=== PATIENT | female | born 1960 | race Caucasian/White ===

== ENCOUNTER → 2019-12-11 | Outpatient (CLI) | payer OTHER ==
[~2019-12-11] MED LIST: ADDE20CA3 PO; CYMB1CAP4 PO; LISI-538 PO; MACR100C43 PO; METF-877 PO; OMEP40CA97 PO; PROC1CRE TOP; SYNT75TA PO; WELLTAB40 PO
--- NOTE | 2019-12-21 15:14 | REPMRS ---
Patient History The patient states she had a clinical breast exam in August 2019.Patient is postmenopausal. Family history of pancreatic cancer in mother. Digital Woman Screen Mammo: December 11, 2019 - Exam #: [id number] Bilateral CC and MLO view(s) were taken. Technologist: Lucy Mckeon, Technologist Prior study comparison: February 20, 2019, bilateral digital woman screen mammo, performed at [facility]. 2017, digital mammo diagnostic bilateral, performed at [facility]. October 07, 2016, bilateral digital woman screen mammo, performed at [facility]. FINDINGS: There are scattered fibroglandular densities. There has been no change in the appearance of the mammogram from the prior studies. There is a mild amount of scattered fibroglandular density which is fairly symmetric. There is no interval development of dominant mass, architectural distortion, or grouped microcalcification suggestive of malignancy. 3-D tomosynthesis shows no additional findings. Assessment: BI-RADS/ACR category 1 mammogram. Negative Mammogram. Recommendation Routine screening mammogram of both breasts in 1 year (for women over age 40). This patient's Lifetime Breast Cancer Risk is estimated at 6.5 %. This mammogram was interpreted with the aid of an FDA-approved computer-aided dectection system. Electronically Signed By: Maxx Tilley MD 12/21/19 [id number]
== END ==
LOC: M WHC 15:48
PROVIDERS: ATTEND Nurse Practitioner Family
DX: Z12.31 Encounter for screening mammogram for malignant neoplasm of breast (principal); Z78.0 Asymptomatic menopausal state

== ENCOUNTER 2019-12-12 15:01 | Emergency (ER) | payer OTHER ==
[~2019-12-12] VITALS: Ht 167.6 cm; Wt 91.1 kg
[2019-12-12] MEDS ORDERED: OMEP40CA97 PO (15:14)
[2019-12-12] MEDS ORDERED: METF-877 PO (15:14)
[2019-12-12] MEDS ORDERED: ADDE20CA3 PO (15:14)
[2019-12-12] MEDS ORDERED: CYMB1CAP4 PO (15:14)
[2019-12-12] MEDS ORDERED: SYNT75TA PO (15:14)
[2019-12-12] MEDS ORDERED: WELLTAB40 PO (15:14)
[2019-12-12] MEDS ORDERED: LISI-538 PO (15:14)
[2019-12-12 16:23] LABS: HEMATOCRIT 42.1 % (36.0-47.0); MEAN CORPUSCULAR HEMOGLOBIN 30.2 pg (27.0-33.0); MEAN CORPUSCULAR HGB CONC 33.3 g/dl (32.0-36.5); MEAN CORPUSCULAR VOLUME 90.7 fl (80.0-96.0); PLATELET COUNT, AUTOMATED 213 10^3/uL (150-450); RED BLOOD COUNT 4.64 10^6/uL (4.00-5.40); WHITE BLOOD COUNT 8.1 10^3/uL (4.0-10.0)
[2019-12-12 16:51] LABS: BLOOD UREA NITROGEN 14 MG/DL (7-18); CALCIUM LEVEL 9.4 MG/DL (8.5-10.1); CARBON DIOXIDE LEVEL 26 MEQ/L (21-32); CHLORIDE LEVEL 106 MEQ/L (98-107); GLOMERULAR FILTRATION RATE > 60.0 (>51); GLUCOSE, FASTING 121 MG/DL (70-100); POTASSIUM SERUM 3.9 MEQ/L (3.5-5.1); SODIUM LEVEL 140 MEQ/L (136-145)
--- NOTE | 2019-12-12 20:49 | REPVR ---
PROCEDURE INFORMATION: Exam: CT Abdomen And Pelvis Without Contrast Exam date and time: 12/12/2019 8:03 PM Age: 59 years old Clinical indication: Abdominal pain; Generalized; Additional info: Hematuria/dysuria TECHNIQUE: Imaging protocol: Computed tomography of the abdomen and pelvis without contrast. Radiation optimization: All CT scans at this facility use at least one of these dose optimization techniques: automated exposure control; mA and/or kV adjustment per patient size (includes targeted exams where dose is matched to clinical indication); or iterative reconstruction. COMPARISON: No relevant prior studies available. FINDINGS: Liver: 1.3 cm hypoattenuating focus in the lateral segment of the left lobe of the liver may represent a benign lesion such as a cyst or hemangioma although not fully characterized on this unenhanced scan. Correlation with ultrasound suggested. Examination of the liver demonstrates a lobular surface contour, and enlargement of the left lobe, findings consistent with cirrhosis in the appropriate clinical setting. Gallbladder and bile ducts: The gallbladder is incompletely distended. This is most likely related to incomplete fasting. Clinical correlation to exclude gallbladder pathology suggested. Pancreas: Normal. No ductal dilation. Spleen: Normal. No splenomegaly. Adrenals: Normal. No mass. Kidneys and ureters: Normal. No hydronephrosis. Stomach and bowel: Mild diverticulosis is present in the distal left colon. No diverticulitis. Appendix: No evidence of appendicitis. Intraperitoneal space: Unremarkable. No free air. No significant fluid collection. Vasculature: The aorta demonstrates mild atherosclerotic calcification. Recanalized paraumbilical veins. Lymph nodes: Unremarkable. No enlarged lymph nodes. Bladder: There is thickening of the bladder wall with perivesicular inflammatory changes consistent with acute cystitis. Reproductive: Unremarkable as visualized. Bones/joints: Moderate to severe central spinal stenosis L2-L3, severe central spinal stenosis L3-L4 and L4-L5. Bilateral facet joint arthropathy L5-S1. Soft tissues: Unremarkable. IMPRESSION: 1. 1.3 cm hypoattenuating focus in the lateral segment of the left lobe of the liver may represent a benign lesion such as a cyst or hemangioma although not fully characterized on this unenhanced scan. Correlation with ultrasound suggested. 2. Examination of the liver demonstrates a lobular surface contour, and enlargement of the left lobe, findings consistent with cirrhosis in the appropriate clinical setting. 3. The gallbladder is incompletely distended. This is most likely related to incomplete fasting. Clinical correlation to exclude gallbladder pathology suggested. 4. There is thickening of the bladder wall with perivesicular inflammatory changes consistent with acute cystitis. 5. Mild diverticulosis is present in the distal left colon. No diverticulitis. Electronically signed by: Jake Lui On 12/12/2019 20:48:55 PM
[2019-12-12] MEDS ORDERED: MACR100C43 PO (21:00)
[2019-12-12] MEDS ORDERED: PROC1CRE TOP (21:00)
[2019-12-12 21:13] VITALS: BP 138/86
--- NOTE | 2019-12-13 18:56 | ED PDOC ---
Post-Departure Follow-Up dr rosado faxed formal report of ct abd/p for fu Heri Coleman MD Dec 13, 2019 18:56
== END 2019-12-12 21:15 | disposition home or self-care (01) ==
LOC: M ED 15:01
DX: N30.91 Cystitis, unspecified with hematuria (principal); K64.9 Unspecified hemorrhoids; E11.9 Type 2 diabetes mellitus without complications; I10 Essential (primary) hypertension; F43.10 Post-traumatic stress disorder, unspecified; K21.9 Gastro-esophageal reflux disease without esophagitis; Z79.899 Other long term (current) drug therapy; Z79.890 Hormone replacement therapy; Z88.2 Allergy status to sulfonamides; Z87.891 Personal history of nicotine dependence

== ENCOUNTER → 2020-01-04 | Outpatient (REF) | payer MEDICARE, OTHER ==
[2020-01-04 13:41] LABS: APPEARANCE, URINE CLOUDY (CLEAR); BACTERIA, URINE AUTO 1+ (NEGATIVE); BILIRUBIN, URINE AUTO NEGATIVE (NEGATIVE); BLOOD, URINE BLOOD 3+ (NEGATIVE); COLOR, URINE YELLOW (YELLOW); GLUCOSE, URINE (UA) AUTO NEGATIVE (NEGATIVE); KETONE, URINE AUTO NEGATIVE (NEGATIVE); LEUKOCYTE ESTERASE, URINE AUTO NEGATIVE (NEGATIVE); MUCUS, URINE SMALL (NEGATIVE); NITRITE, URINE AUTO NEGATIVE (NEGATIVE); PROTEIN, URINE AUTO 2+ mg/dL (NEGATIVE); RBC, URINE AUTO TNTC /HPF (0-3); SPECIFIC GRAVITY URINE AUTO 1.013 (1.002-1.035); SQUAMOUS EPITHELIAL CELL UR AU 1 /HPF (0-6); TRANSITIONAL EPITHELIAL AUTO 1 /HPF; UROBILINOGEN, URINE AUTO 0.2 mg/dL (0.0-2.0); WBC, URINE AUTO 12 /HPF (0-3)
== END ==
LOC: M SMT 13:10
PROVIDERS: ATTEND Nurse Practitioner Family
DX: R31.29 Other microscopic hematuria (principal)
CPT/HCPCS: 81001; 87086; 88108; G0463

== ENCOUNTER 2020-02-07 09:39 | Day surgery (SDC) | payer MEDICARE, OTHER ==
[~2020-02-07] VITALS: Ht 167.6 cm; Wt 89.8 kg
[~2020-02-07 09:39] MED LIST changes: +LIDOCAINE 1% MDV 20ML VIAL SQ PRN; +LR 1,000 ML IV ONE; +ceFAZolin SOD 2 GM in IV 1 EA IV ONE
[2020-02-07] MEDS ORDERED: ONDANSETRON 4MG/2ML VIAL As Ordered ONE ×2 (12:42→18:57)
[2020-02-07] MEDS ORDERED: propofoL 200 MG/20 ML VIAL As Ordered ONE (12:42)
[2020-02-07] MEDS ORDERED: LIDOCAINE 2% 100MG/5ML SDV (FOR ANES.) As Ordered ONE (12:42)
[2020-02-07] MEDS ORDERED: ROCURONIUM BROMIDE 50 MG/5 ML VIAL As Ordered ONE ×2 (12:42→17:24)
[2020-02-07] MEDS ORDERED: dexameTHASONE 4 MG/ML 1ML VIAL (J1100 PER 1MG) As Ordered ONE (12:42)
[2020-02-07] MEDS ORDERED: fentaNYL 100 MCG/2 ML INJECTION (J3010) As Ordered ONE ×2 (12:46→16:41)
[2020-02-07] MEDS ORDERED: MIDAZOLAM INJ 2MG/2ML VIAL (J2250 PER 1MG) As Ordered ONE (12:46)
[2020-02-07] MEDS ORDERED: HYDROmorphone HCL 2 MG/ML 1ML VIAL (J1170) As Ordered ONE (16:51)
[2020-02-07] MEDS ORDERED: CONRAY-60 60% 50ML VIAL (Q9961) As Ordered ONE (16:54)
[2020-02-07] MEDS ORDERED: PHENYLephrine HCL 500 MCG/5 ML (100MCG/ML) SYRINGE (J2370) As Ordered ONE (16:57)
[2020-02-07] MEDS ORDERED: ACETAMINOPHEN 1000MG 100ML IV BTL (OFIRMEV) (J0131 PER 10MG) As Ordered ONE (17:28)
[2020-02-07] MEDS ORDERED: fentaNYL 250 MCG/5 ML INJECTION (J3010) As Ordered ONE (18:13)
[2020-02-07] MEDS ORDERED: SUGAMMADEX SODIUM 500 MG/5 ML VIAL (BRIDION) As Ordered ONE (18:15)
[2020-02-07] MEDS ORDERED: ONDANSETRON 4MG/2ML VIAL IV PRN (19:15)
[2020-02-07] MEDS ORDERED: LR 1,000 ML IV SCH (19:15)
[2020-02-07] MEDS ORDERED: fentaNYL 100 MCG/2 ML INJECTION (J3010) IV PRN (19:15)
[2020-02-07] MEDS ORDERED: oxyCODONE 5MG TAB PO PRN (19:15)
--- NOTE | 2020-02-07 19:28 | REP ---
Retrograde ureterogram: Three views. History: Possible bilateral stent placement. 27 seconds of fluoroscopy time is reported. Findings: A sequence of three last image hold fluoroscopically obtained spot radiographs of the abdomen document right ureteral and left ureteral cannulation, contrast injection and right ureteral stent placement. Electronically Signed by Miko Tilley MD 02/07/2020 08:48 P
[2020-02-07] MEDS ORDERED: PERCOCET 5MG/325MG TAB PO PRN (19:30)
[2020-02-07] MEDS ORDERED: oxyBUTYnin 5 MG TAB PO PRN (19:30)
[2020-02-07] MEDS ORDERED: METOCLOPRAMIDE INJ 10MG/2ML VIAL (J2765 PER 1) As Ordered ONE (19:52)
[2020-02-07] MEDS ORDERED: METOCLOPRAMIDE INJ 10MG/2ML VIAL (J2765 PER 1) IV ONE (20:00)
[2020-02-07 21:13] VITALS: BP 127/78
--- NOTE | 2020-02-08 07:29 | RO ---
DATE OF PROCEDURE: 02/07/2020 PREPROCEDURE DIAGNOSIS: Bladder tumors. POSTPROCEDURE DIAGNOSIS: Bladder tumors. PROCEDURE: Cystoscopy, transurethral resection of bladder tumors (greater than 5 cm), right ureteroscopy, Bilateral retrograde pyelogram with intraoperative interpretation of images, right ureteral stent placement, examination under anesthesia. SURGEON: Dr. Yovany Bourgeois. [employer]: None. ANESTHESIA: General OPERATIVE INDICATIONS: This is a 59-year-old female who was found to have a large amount of bladder tumors on recent cystoscopy. She was brought to the operating room today for treatment. DESCRIPTION OF PROCEDURE: The patient was brought to the operating room and general anesthesia was induced. Prophylactic antibiotics were infused. She was then placed in the dorsal lithotomy position and prepped and draped in the usual sterile fashion. At this point, a bimanual pelvic examination under anesthesia was performed. The bladder was freely mobile. There were no palpable bladder masses. At this point a resectoscope inserted into the urethral meatus and advanced to the bladder using a visual obturator. The bladder was then thoroughly examined and of note, there was a very large collection of bladder tumors occupying the left lateral aspect of the bladder all the way down to the left trigone. There were also moderate sized bladder tumors on the anterior wall on the left and right. At this point, a 5-Bangladeshi open end ureteral catheter was utilized to perform bilateral retrograde pyelograms. A left retrograde pyelogram was negative for hydronephrosis, extravasation or filling defects. A right retrograde pyelogram is negative for hydronephrosis or extravasation but there did appear to be a possible filling defect in the renal pelvis. I therefore, performed a right ureteroscopy and of note, her right ureter was moderately narrow in the proximal aspect. I had a difficult time getting the ureteroscope into the kidney. Once I got the ureteroscope into the kidney, it was thoroughly examined and no masses were seen inside the kidney. At this point, I withdrew the ureteroscope and utilized a wire to advanced a 6-Bangladeshi by 22-32 cm JJ ureteral stent into the right collecting system. The wire was removed and there were adequate curls in the stent and right renal pelvis and in the bladder. At this point, utilized a bipolar loop to resect all the tumors in the bladder. I made sure to resect down to the muscle layer in several areas. While doing this, I did not have to resect on top of the left or the right ureteral orifices. I utilized an [employer] evacuator to evacuate all of the specimens in the bladder. Once all the specimens were removed, I utilized a coagulation current to cauterize the base of resection until there was good hemostasis. Once I was satisfied all the tumors were removed and there was good hemostasis, the resectoscope and I advanced an 18-Bangladeshi Babcock catheter into the bladder. The balloon was filled with 10 mL of sterile water and the catheter ws connected to gravity drainage. This marked the conclusion of the procedure. The patient was taken out of the dorsal lithotomy position and awakened from anesthesia and transported to the recovery room in stable condition. ESTIMATED BLOOD LOSS: 5 mL COMPLICATIONS: None. SPECIMENS: Bladder tumor. PLAN: The patient will followup in the clinic in approximately 1 week for pathology results. She will likely leave her catheter in for 2 weeks to allow her bladder to heal. Her stent will also probably be left in for at least 2 weeks.
== END 2020-02-07 21:18 | disposition home or self-care (01) ==
LOC: M SDC 09:39
PROVIDERS: ATTEND Urology
DX: C67.9 Malignant neoplasm of bladder, unspecified (principal); I10 Essential (primary) hypertension; E11.9 Type 2 diabetes mellitus without complications; K21.9 Gastro-esophageal reflux disease without esophagitis; E03.9 Hypothyroidism, unspecified; F43.10 Post-traumatic stress disorder, unspecified; Z79.84 Long term (current) use of oral hypoglycemic drugs; Z79.899 Other long term (current) drug therapy; Z88.2 Allergy status to sulfonamides; Z91.030 Bee allergy status
CPT/HCPCS: 52240; 52332; 74420; 88307; 88341; 88342; C1769; C1894; C2617; J0131; J0690; J1100; J1170; J2250; J2370; J2405; J2765; J3010; Q9961

== ENCOUNTER → 2020-02-26 | Outpatient (CLI) | payer OTHER ==
[~2020-02-26] MED LIST changes: -LIDOCAINE 1% MDV 20ML VIAL SQ PRN; -LR 1,000 ML IV ONE; -ceFAZolin SOD 2 GM in IV 1 EA IV ONE
--- NOTE | 2020-02-26 18:55 | REP ---
Clinical: History of bladder cancer. Technique: Real time springer scale and color evaluation using curved array transducer. Findings: The liver is hyperechoic suggesting fatty infiltration with 1.3 cm cyst and mild focal fatty sparing at the gallbladder fossa. The pancreas is incompletely evaluated due to interposed bowel gas but visualized portions appear normal. The gallbladder is unremarkable. No biliary ductal dilatation is appreciated and the common bile duct measures 7 mm diameter. The right kidney is normal in reniform shape without hydronephrosis and measures 11.4 x 5.4 x 4.1 cm. No pelvic fluid or adnexal mass lesion. Impression: Hepatic steatosis with 1.3 cm simple hepatic cyst. Electronically Signed by Bryan De Jesus MD 02/26/2020 06:46 P
== END ==
LOC: M RAD 07:54
PROVIDERS: ATTEND Nurse Practitioner Family
DX: K76.89 Other specified diseases of liver (principal); C67.9 Malignant neoplasm of bladder, unspecified; K76.0 Fatty (change of) liver, not elsewhere classified

== ENCOUNTER 2020-05-02 13:06 | Emergency (ER) | payer OTHER ==
[~2020-05-02] VITALS: Ht 167.6 cm; Wt 92.9 kg
[2020-05-02] MEDS ORDERED: KETOROLAC 60MG 2ML VIAL IM ONE (15:45)
[2020-05-02 16:08] LABS: EOS % 0.2 % (0.0-3.0); HEMATOCRIT 30.8 % (36.0-47.0); HEMOGLOBIN 10.2 g/dl (12.0-15.5); LYMPH # 2.1 10^3/uL (1.5-5.0); LYMPH % 36.6 % (24.0-44.0); MEAN CORPUSCULAR HEMOGLOBIN 30.3 pg (27.0-33.0); MEAN CORPUSCULAR HGB CONC 33.1 g/dl (32.0-36.5); MEAN CORPUSCULAR VOLUME 91.4 fl (80.0-96.0); MONO % 0.7 % (0.0-5.0); NEUTROPHILS # 3.5 10^3/uL (1.5-8.5); NEUTROPHILS % 62.3 % (36.0-66.0); PLATELET COUNT, AUTOMATED 117 10^3/uL (150-450); RED BLOOD COUNT 3.37 10^6/uL (4.00-5.40); WHITE BLOOD COUNT 5.7 10^3/uL (4.0-10.0)
--- NOTE | 2020-05-02 16:24 | REP ---
Clinical: Left upper extremity pain and swelling. Technique: Real time springer scale and color Doppler evaluation using linear high frequency transducer. Findings: Thrombus identified through the extent of the left cephalic vein. Visualized jugular vein, subclavian vein, axillary, basilic and brachial veins are all patent and normal. Impression: 1. Occluding thrombus through the cephalic vein. Electronically Signed by Bryan De Jesus MD 05/02/2020 04:15 P
[2020-05-02 16:31] LABS: ERYTHROCYTE SEDIMENTATION RATE 70 mm/hr (0-30)
[2020-05-02 16:59] VITALS: BP 137/71
== END 2020-05-02 17:06 | disposition home or self-care (01) ==
LOC: M ED 13:06
DX: I80.8 Phlebitis and thrombophlebitis of other sites (principal); C67.9 Malignant neoplasm of bladder, unspecified; Z79.899 Other long term (current) drug therapy; Z88.2 Allergy status to sulfonamides; Z91.030 Bee allergy status; Z91.038 Other insect allergy status; E03.9 Hypothyroidism, unspecified
CPT/HCPCS: 36415; 80047; 85025; 85652; 93971; 96372; 99283; J1885

== ENCOUNTER 2020-05-16 17:59 | Emergency (ER) | payer OTHER ==
[~2020-05-16] VITALS: Ht 167.6 cm; Wt 95.8 kg
[2020-05-16] MEDS ORDERED: XARE15TA (18:10)
[2020-05-16] MEDS ORDERED: NS 1,000 ML IV ONE (18:15)
[2020-05-16 18:43] LABS: HEMATOCRIT 24.6 % (36.0-47.0); HEMOGLOBIN 8.3 g/dl (12.0-15.5); LYMPH # 0.4 10^3/uL (1.5-5.0); LYMPH % 8.9 % (24.0-44.0); MEAN CORPUSCULAR HEMOGLOBIN 31.1 pg (27.0-33.0); MEAN CORPUSCULAR HGB CONC 33.7 g/dl (32.0-36.5); MEAN CORPUSCULAR VOLUME 92.1 fl (80.0-96.0); MONO # 0.2 10^3/uL (0.0-0.8); MONO % 4.8 % (0.0-5.0); NEUTROPHILS # 3.9 10^3/uL (1.5-8.5); NEUTROPHILS % 84.4 % (36.0-66.0); PLATELET COUNT, AUTOMATED 307 10^3/uL (150-450); RED BLOOD COUNT 2.67 10^6/uL (4.00-5.40); WHITE BLOOD COUNT 4.6 10^3/uL (4.0-10.0)
[2020-05-16 18:53] LABS: INR 1.18; PROTHROMBIN TIME 14.7 SECONDS (11.8-14.0)
[2020-05-16 19:04] LABS: CALCIUM LEVEL 7.6 MG/DL (8.5-10.1); CREATININE FOR GFR 1.79 MG/DL (0.55-1.30); GLOMERULAR FILTRATION RATE 30.9 (>51); POTASSIUM SERUM 4.2 MEQ/L (3.5-5.1)
--- NOTE | 2020-05-16 21:04 | REPVR ---
PROCEDURE INFORMATION: Exam: CT Abdomen And Pelvis Without Contrast Exam date and time: 05/16/2020 8:11 PM Age: 59 years old Clinical indication: Abdominal pain; Additional info: Floyd, hematuria TECHNIQUE: Imaging protocol: Computed tomography of the abdomen and pelvis without contrast. Radiation optimization: All CT scans at this facility use at least one of these dose optimization techniques: automated exposure control; mA and/or kV adjustment per patient size (includes targeted exams where dose is matched to clinical indication); or iterative reconstruction. COMPARISON: CT ABD PELVIS W/O CONTRAST 12/12/2019 8:00 PM FINDINGS: Lungs: The imaged portions of the lung bases are clear. The lungs were not fully imaged. Heart: No cardiomegaly or pericardial effusion. Diaphragm: Intact. Liver: There is a 6 mm cyst in the superior lateral segment 2 of the left hepatic lobe that has decreased in size from 13 mm [address] the prior CT abdomen and pelvis on 12/12/2019 and for which further follow-up is not necessary. There is fatty infiltration of the liver with focal fatty sparing adjacent to the gallbladder fossa. The contour of the liver is smooth. No hepatomegaly is noted. Gallbladder and bile ducts: No calcified gallstones are noted. No gallbladder wall thickening, pericholecystic fluid, or pericholecystic inflammatory changes are identified. No dilation of the bile ducts is noted. No calcified stones are seen in the common bile duct. Pancreas: Unremarkable. No dilation of the main pancreatic duct is noted. There is no inflammatory fat stranding around the pancreas to suggest acute pancreatitis. Spleen: There is a punctate calcified granuloma in the spleen. No splenomegaly. Adrenals: Normal. No adrenal mass is noted. Kidneys and ureters: The kidneys are unremarkable. No renal lesion is noted. No stones are noted in the kidneys or ureters. There is no hydronephrosis or hydroureter. Stomach and bowel: The stomach and small bowel are unremarkable. There is sigmoid diverticulosis without evidence for diverticulitis. There is no evidence for a bowel obstruction, colitis, pneumatosis intestinalis, intussusception, volvulus, or perforated viscus. Appendix: Normal. There is no evidence for appendicitis. Intraperitoneal space: No free air. No ascites. No asbcess. Retroperitoneal space: No fluid collection. No mass. Vasculature: There is no abdominal aortic aneurysm or intramural hematoma. There are mild atherosclerotic calcifications. Lymph nodes: No enlarged lymph nodes. Bladder: There is a diverticulum arising from the superior aspect of bladder. No stones or masses are noted the bladder. There is no bladder wall thickening. Reproductive: The uterus is anterverted and unremarkable. The ovaries are unremarkable. Bones/joints: There is no fracture or dislocation. No suspicious osteolytic or osteoblastic lesion. There is a mild dextroscoliosis of the lumbar spine and degenerative changes in the lumbar spine. There is mild osteoarthritis of both hip joints. Soft tissues: Unremarkable. No hernia. IMPRESSION: 1. No acute findings in the abdomen or pelvis. 2. No stones in the kidneys, ureters, or urinary bladder. No hydronephrosis or hydroureter. 3. Sigmoid diverticulosis without evidence for diverticulitis. 4. Fatty liver. Electronically signed by: Db Lopez On 05/16/2020 21:04:29 PM
[2020-05-16 21:44] VITALS: BP 131/70
== END 2020-05-16 21:47 | disposition home or self-care (01) ==
LOC: M ED 17:59
DX: N17.9 Acute kidney failure, unspecified (principal); D68.32 Hemorrhagic disorder due to extrinsic circulating anticoagulants; R31.0 Gross hematuria; E86.0 Dehydration; E03.9 Hypothyroidism, unspecified; I10 Essential (primary) hypertension; K21.9 Gastro-esophageal reflux disease without esophagitis; Z79.01 Long term (current) use of anticoagulants; Z79.84 Long term (current) use of oral hypoglycemic drugs; Z79.890 Hormone replacement therapy; Z79.899 Other long term (current) drug therapy; Z85.51 Personal history of malignant neoplasm of bladder; Z91.048 Other nonmedicinal substance allergy status; Z88.2 Allergy status to sulfonamides; Z91.030 Bee allergy status

== ENCOUNTER 2020-07-21 12:27 | Emergency (ER) | payer OTHER ==
[~2020-07-21] VITALS: Ht 167.6 cm; Wt 95.0 kg
[~2020-07-21 12:27] MED LIST changes: +XARE15TA
[2020-07-21] MEDS ORDERED: CEPH250T PO (12:45)
[2020-07-21] MEDS ORDERED: ENOX100I3 INJ (12:45)
[2020-07-21] MEDS ORDERED: DOCU100C16 PO (12:45)
--- NOTE | 2020-07-21 14:00 | REPVR ---
PROCEDURE INFORMATION: Exam: XR Complete Acute Abdomen Series Exam date and time: 07/21/2020 1:18 PM Age: 59 years old Clinical indication: Abdominal pain; Prior surgery; Surgery date: <1 month TECHNIQUE: Imaging protocol: XR complete acute abdomen series, including 2 or more views of the abdomen and a single view chest. COMPARISON: CT ABD PELVIS W/O CONTRAST 05/16/2020 8:18 PM FINDINGS: Tubes, catheters and devices: There appear to be bilateral nephroureterostomy tubes. Lungs: There is a small calcified granuloma in the mid left lung. The lungs are otherwise clear. Pleural space: Normal. No pneumothorax. Heart/Mediastinum: Normal. No cardiomegaly. Gastrointestinal tract: The small bowel is not significantly air-distended or with air-fluid levels. Air and stool are present within large bowel. Intraperitoneal space: No free air is evident. Bones/joints: Degenerative changes involve the spine and hips. Soft tissues: Skin shilpa are vertically oriented over the midline of the pelvis. IMPRESSION: 1. No evidence for acute pulmonary disease. 2. Nonspecific bowel gas pattern. 3. Postoperative changes as described. Electronically signed by: Martinez Downey On 07/21/2020 14:00:09 PM
[2020-07-21] MEDS ORDERED: MORPHINE 2 MG/ML 1ML VIAL (J2270) IV ONE ×3 (14:15→16:30)
[2020-07-21] MEDS ORDERED: ONDANSETRON 4MG/2ML VIAL IV ONE (14:15)
[2020-07-21] MEDS ORDERED: ISOVUE-370 76% 100ML VIAL As Ordered ONE ×2 (14:23→14:54)
[2020-07-21 14:24] LABS: BASO % 0.2 % (0.0-1.0); EOS # 0.2 10^3/uL (0.0-0.5); EOS % 1.3 % (0.0-3.0); HEMATOCRIT 25.9 % (36.0-47.0); HEMOGLOBIN 8.3 g/dl (12.0-15.5); LYMPH # 1.2 10^3/uL (1.5-5.0); LYMPH % 10.3 % (24.0-44.0); MONO % 8.5 % (0.0-5.0); NEUTROPHILS # 8.9 10^3/uL (1.5-8.5); NEUTROPHILS % 78.8 % (36.0-66.0); PLATELET COUNT, AUTOMATED 218 10^3/uL (150-450); RED BLOOD COUNT 2.59 10^6/uL (4.00-5.40); WHITE BLOOD COUNT 11.3 10^3/uL (4.0-10.0)
[2020-07-21] MEDS ORDERED: NS 1,000 ML IV ONE ×2 (14:30)
[2020-07-21] MEDS ORDERED: PIPERACILLIN/TAZOBACTAM SOD 4.5 GM in D5W MINI-BAG PLUS 50 ML IV ONE (14:30)
[2020-07-21] MEDS ORDERED: MORPHINE 2 MG/ML 1ML VIAL (J2270) As Ordered ONE (14:32)
[2020-07-21 14:55] LABS: ALBUMIN 3.1 GM/DL (3.2-5.2); BILIRUBIN,DIRECT 0.1 MG/DL (0.0-0.2); BILIRUBIN,TOTAL 0.3 MG/DL (0.2-1.0); TOTAL PROTEIN 6.4 GM/DL (6.4-8.2)
--- NOTE | 2020-07-21 15:32 | REPVR ---
PROCEDURE INFORMATION: Exam: CT Abdomen And Pelvis With Contrast Exam date and time: 07/21/2020 2:17 PM Age: 59 years old Clinical indication: Abdominal pain; Generalized; Prior surgery; Surgery date: <1 month; Additional info: Abdominal pain, S/P bladder resection on 07/11 with urostomy TECHNIQUE: Imaging protocol: Computed tomography of the abdomen and pelvis with intravenous contrast. Radiation optimization: All CT scans at this facility use at least one of these dose optimization techniques: automated exposure control; mA and/or kV adjustment per patient size (includes targeted exams where dose is matched to clinical indication); or iterative reconstruction. Contrast material: ISOVUE 370; Contrast volume: 100 ml; Contrast route: INTRAVENOUS (IV); COMPARISON: CT ABD PELVIS W/O CONTRAST 05/16/2020 8:18 PM FINDINGS: Lungs: The visualized lung bases demonstrate mild dependent atelectasis. Pleural space: A very small right pleural effusion has developed. Liver: The liver is again fatty in density. It appears otherwise grossly unremarkable. Gallbladder and bile ducts: No gallstones are evident, but ultrasound would be more sensitive. No gross biliary ductal dilatation. Pancreas: Normal. No ductal dilation. Spleen: A tiny calcified granuloma is again present in the spleen. Adrenals: Normal. No mass. Kidneys and ureters: The kidneys demonstrate mild cortical scarring. They appear otherwise unremarkable. Stomach and bowel: The unopacified small bowel is not significantly distended to suggest obstruction. There is again mild sigmoid colonic diverticulosis without evidence for diverticulitis. Appendix: The appendix appears normal. Intraperitoneal space: There is no free air. Moderate free fluid is present in the pelvis, with trace free fluid extending about the liver. No discrete walled-off collection to indicate abscess is identified. Vasculature: The abdominal aorta is nonaneurysmal. Atherosclerotic vascular calcifications are again present. Question filling defects of deep venous thrombus in the bilateral external iliac and common femoral veins. Lymph nodes: Unremarkable. No enlarged lymph nodes. Bladder: There has been interval cystectomy with bilateral nephroureterostomy and right-sided ileal conduit. Reproductive: Unremarkable as visualized. Bones/joints: Degenerative changes again involve the spine, sacroiliac joints and hips. Soft tissues: There are new vertically oriented skin shilpa over the midline of the lower abdomen and pelvis. Moderate underlying subcutaneous edema is present. IMPRESSION: 1. Interval cystectomy with bilateral nephroureterostomy and right-sided ileal conduit since 05/16/20. 2. Moderate new free fluid in the pelvis with trace free fluid about the liver, without discrete abscess identified. 3. Very small new right pleural effusion. 4. Question filling defects of deep venous thrombus in the bilateral external iliac and common femoral veins. Recommend bilateral lower venous Doppler exam. 5. Persistent hepatic steatosis. 6. Persistent mild sigmoid colonic diverticulosis without evidence for diverticulitis. Electronically signed by: Martinez Downey On 07/21/2020 15:32:50 PM
[2020-07-21] MEDS ORDERED: ACETAMINOPHEN 325 MG TAB PO ONE (16:00)
--- NOTE | 2020-07-21 16:48 | REPVR ---
PROCEDURE INFORMATION: Exam: US Duplex Lower Extremity Veins, Bilateral Exam date and time: 07/21/2020 4:36 PM Age: 59 years old Clinical indication: Abnormal findings; Abnormal imaging study of limbs; Eiv and cfv; CT; Additional info: Abnormal CT abd/p - requesting US to RO dvt TECHNIQUE: Imaging protocol: Real-time duplex ultrasound of the extremities with 2-D springer scale, color Doppler flow and spectral waveform analysis with image documentation. Complete exam focused on the bilateral lower extremity veins. COMPARISON: No relevant prior studies available. FINDINGS: Right deep veins: Unremarkable. The common femoral, femoral, proximal profunda femoral and popliteal veins are patent without thrombus. Normal Doppler waveforms. Normal compressibility and/or augmentation response. Right superficial veins: Saphenofemoral junction is patent without thrombus. Left deep veins: Unremarkable. The common femoral, femoral, proximal profunda femoral and popliteal veins are patent without thrombus. Normal Doppler waveforms. Normal compressibility and/or augmentation response. Left superficial veins: Saphenofemoral junction is patent without thrombus. Soft tissues: Unremarkable. IMPRESSION: No deep venous thrombus demonstrated in either lower extremity. Electronically signed by: Martinez Downey On 07/21/2020 16:48:15 PM
[2020-07-21] MEDS ORDERED: NS 1,000 ML IV SCH (18:00)
--- NOTE | 2020-07-21 20:32 | ECGEPIP ---
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
[2020-07-21] MEDS ORDERED: MORPHINE 4 MG/ML 1ML VIAL/SYRINGE (J2270) IV ONE (20:45)
[2020-07-21 22:01] VITALS: BP 137/64
== END 2020-07-21 22:13 | disposition short-term general hospital (02) ==
LOC: M ED 12:27
DX: R10.9 Unspecified abdominal pain (principal); R50.9 Fever, unspecified; R93.6 Abnormal findings on diagnostic imaging of limbs; I10 Essential (primary) hypertension; E11.9 Type 2 diabetes mellitus without complications; D55.0 Anemia due to glucose-6-phosphate dehydrogenase [G6PD] deficiency; K21.9 Gastro-esophageal reflux disease without esophagitis; Z92.21 Personal history of antineoplastic chemotherapy; Z79.899 Other long term (current) drug therapy; Z79.890 Hormone replacement therapy; Z79.84 Long term (current) use of oral hypoglycemic drugs; Z88.1 Allergy status to other antibiotic agents; Z88.2 Allergy status to sulfonamides; Z88.8 Allergy status to other drugs, medicaments and biological substances; Z91.030 Bee allergy status
CPT/HCPCS: 74021; 74177; 80047; 80076; 81001; 82150; 83605; 83690; 85025; 87040; 87086; 93005; 93041; 93970; 96365; 96375; 96376; 99285; J2270; J2405; J2543; Q9967; U0002

== ENCOUNTER → 2022-01-27 | Outpatient (CLI) | payer OTHER ==
[~2022-01-27] MED LIST changes: +CEPH250T PO; +DOCU100C16 PO; +ENOX100I3 INJ; -LISI-538 PO; +LISI20TA33 PO; +OMEP40CA4 PO; -OMEP40CA97 PO
== END ==
LOC: M WHC 12:37
PROVIDERS: ATTEND Nurse Practitioner Family
DX: Z12.31 Encounter for screening mammogram for malignant neoplasm of breast (principal); Z80.0 Family history of malignant neoplasm of digestive organs; Z85.9 Personal history of malignant neoplasm, unspecified

== ENCOUNTER → 2022-12-10 | Outpatient (CLI) | payer OTHER | LOC: M PLAIMG 14:11 | PROVIDERS: ATTEND Physician Assistant | DX: M75.41 Impingement syndrome of right shoulder (principal) ==

== ENCOUNTER → 2023-02-24 | Outpatient (CLI) | payer OTHER | LOC: M WHC 12:24 | PROVIDERS: ATTEND Nurse Practitioner Family | DX: Z12.31 Encounter for screening mammogram for malignant neoplasm of breast (principal) ==

== ENCOUNTER → 2024-03-06 | Outpatient (CLI) | payer OTHER | LOC: M WHC 11:47 | PROVIDERS: ATTEND Nurse Practitioner Family | DX: Z12.31 Encounter for screening mammogram for malignant neoplasm of breast (principal) ==

== ENCOUNTER → 2024-04-10 | Outpatient (CLI) | payer OTHER | LOC: M WHC 13:27 | PROVIDERS: ATTEND Nurse Practitioner Family | DX: R92.2 Inconclusive mammogram (principal) | CPT/HCPCS: 76642; 77065; G0279 ==

== ENCOUNTER → 2024-10-10 | Outpatient (CLI) | payer OTHER | LOC: M WHC 13:08 | PROVIDERS: ATTEND Registered Nurse | DX: N63.15 Unspecified lump in the right breast, overlapping quadrants (principal); R92.8 Other abnormal and inconclusive findings on diagnostic imaging of breast ==

== ENCOUNTER → 2025-03-08 | Outpatient (CLI) | payer OTHER | LOC: M WHC 10:05 | PROVIDERS: ATTEND Nurse Practitioner Family | DX: R92.8 Other abnormal and inconclusive findings on diagnostic imaging of breast (principal); R92.323 Mammographic fibroglandular density, bilateral breasts | CPT/HCPCS: 77066; G0279 ==